=== PATIENT | male | born 1975 | race African-American/Black ===

== ENCOUNTER 2019-04-21 15:47 | Inpatient (IN) | payer OTHER ==
[2019-04-21 20:13] VITALS: BMI 29.0
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
[2019-04-21] MEDS ORDERED: MAG HYDROX/AL HYDROX/SIMETH 30 ML UNIT-DOSE CUP PO PRN (22:36)
[2019-04-21] MEDS ORDERED: hydrOXYzine PAMOATE 25 MG CAPSULE (FP) PO PRN (22:36)
[2019-04-21] MEDS ORDERED: IBUPROFEN 400 MG TABLET (FP) PO PRN (22:36)
[2019-04-21] MEDS ORDERED: MAGNESIUM CITRATE 300 ML BOTTLE PO PRN (22:36)
[2019-04-21] MEDS ORDERED: METHOCARBAMOL 500 MG TABLET PO PRN (22:36)
[2019-04-21] MEDS ORDERED: NICOTINE POLACRILEX 2 MG GUM BUC PRN (22:36)
[2019-04-21] MEDS ORDERED: MAGNESIUM HYDROX 2400MG/30ML ORAL SUSPENSION 30 ML CUP PO PRN (22:36)
[2019-04-21] MEDS ORDERED: BISMUTH SUBSALICYLATE 524 MG/30 ML UD PO PRN (22:36)
[2019-04-21] MEDS ORDERED: ACETAMINOPHEN 325 MG TABLET (FP) PO PRN ×2 (22:36)
[2019-04-21] MEDS ORDERED: chlordiazePOXIDE HCL 25 MG CAPSULE PO PRN (22:36)
[2019-04-21] MEDS ORDERED: MENTHOL/PHENOL 1 EACH UD MM PRN (22:36)
[2019-04-21] MEDS: chlordiazePOXIDE HCL 25 MG CAPSULE PO SCH (23:39)
[2019-04-21] MEDS: MELATONIN 5 MG TABLETS PO PRN (23:40)
[2019-04-22] MEDS: chlordiazePOXIDE HCL 25 MG CAPSULE PO SCH ×4 (06:37→22:43)
--- NOTE | 2019-04-22 11:21 | EKG ---
Test Reason : Blood Pressure : / mmHG Vent. Rate : 071 BPM Atrial Rate : 071 BPM P-R Int : 198 ms QRS Dur : 108 ms QT Int : 382 ms P-R-T Axes : 067 073 053 degrees QTc Int : 415 ms NORMAL SINUS RHYTHM NORMAL ECG NO PREVIOUS ECGS AVAILABLE Confirmed by MALDONADO HARO, JUAN MIGUEL ([id number]) on 04/22/2019 11:20:42 AM Referred By: Confirmed By:JUAN MIGUEL OKEEFE MD
[2019-04-22] MEDS: PRENATAL VITAMINS W/ FOLIC ACID TABLET (FP) PO SCH (11:25)
[2019-04-22] MEDS: NICOTINE 14 MG/24 HOURS TOPICAL PATCH TD SCH (11:27)
[2019-04-22 11:28] LABS: HEMATOCRIT 41.1 % (35.4-49); HEMOGLOBIN 12.9 GM/dL (11.7-16.9); MCH 24.1 pg (25.7-33.7); MCHC 31.5 g/dl (32.0-35.9); MEAN CELL VOLUME 76.4 fl (80-96); PLATELET COUNT 319 K/MM3 (134-434); RBC 5.38 M/mm3 (4.00-5.60); RDW 15.2 % (11.9-15.9)
[2019-04-22 12:26] LABS: ALBUMIN 3.3 g/dl (3.4-5.0); BILIRUBIN,TOTAL 0.6 mg/dL (0.2-1); BLOOD UREA NITROGEN 10.2 mg/dL (7-18); CALCIUM 8.8 mg/dL (8.5-10.1); CREATININE 1.4 mg/dL (0.55-1.3); POTASSIUM 4.1 mmol/L (3.5-5.1); TOT PROT 6.3 g/dl (6.4-8.2)
--- NOTE | 2019-04-22 13:11 | PN ---
[facility] CIWA - CIWA Score Nausea/Vomitin-Mild Nausea/No Vomiting Muscle Tremors: 2 Anxiety: 1-Mildly Anxious Agitation: 1-Slight > Activity Paroxysmal Sweats: 1-Minimal Palms Moist Orientation: 0-Oriented Tacttile Disturbances: 0-None Auditory Disturbances: 0-None Visual Disturbances: 0-None Headache: 1-Very Mild CIWA-Ar Total Score: 7 [facility] Progress Note (SOAP) Subjective: pt admitted for alcohol detox O: Vital Signs - 24 hr 04/21/19 04/21/19 04/22/19 19:58 23:38 00:30 Temperature 99.2 F 97.9 F Pulse Rate 87 74 Respiratory 18 18 18 Rate Blood Pressure 141/86 119/76 04/22/19 04/22/19 03:30 08:03 Temperature 97.2 F L Pulse Rate 80 Respiratory 18 20 Rate Blood Pressure 123/63 Laboratory Tests 04/22/19 04/22/19 04/22/19 07:30 07:30 07:30 WBC 6.0 RBC 5.38 Hgb 12.9 Hct 41.1 MCV 76.4 L MCH 24.1 L MCHC 31.5 L RDW 15.2 Plt Count 319 MPV 8.0 Sodium 144 Potassium 4.1 Chloride 110 H Carbon Dioxide 26 Anion Gap 8 BUN 10.2 Creatinine 1.4 H Est GFR (CKD-EPI)AfAm 69.83 Est GFR (CKD-EPI)NonAf 60.25 Random Glucose 89 Calcium 8.8 Total Bilirubin 0.6 AST 16 ALT 24 Alkaline Phosphatase 86 Total Protein 6.3 L Albumin 3.3 L RPR Titer Nonreactive a/p: continue alcohol detox, pt without complaints.
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
[2019-04-22] MEDS: THIAMINE HCL 100 MG TABLET (FP) PO SCH (22:43)
[2019-04-23] MEDS: MELATONIN 5 MG TABLETS PO PRN ×2 (00:05→23:11)
[2019-04-23] MEDS: chlordiazePOXIDE HCL 25 MG CAPSULE PO SCH ×3 (07:28→18:30)
--- NOTE | 2019-04-23 09:27 | PN ---
S CIWA - CIWA Score Nausea/Vomitin Muscle Tremors: 2 Anxiety: 2 Agitation: 2 Paroxysmal Sweats: 1-Minimal Palms Moist Orientation: 0-Oriented Tacttile Disturbances: 1-Very Mild Itch/Numbness Auditory Disturbances: 1-Very Mild Visual Disturbances: 0-None Headache: 1-Very Mild CIWA-Ar Total Score: 12 [facility] Progress Note (SOAP) Subjective: alert,irritable,anxious,interrupted sleep,pain in the body Objective: 04/23/19 09:26 Vital Signs Temperature 97.9 F 04/23/19 09:08 Pulse Rate 80 04/23/19 09:08 Respiratory Rate 17 04/23/19 09:08 Blood Pressure 101/54 L 04/23/19 09:08 O2 Sat by Pulse Oximetry (%) Laboratory Last Values WBC 6.0 K/mm3 (4.0-10.0) 04/22/19 07:30 RBC 5.38 M/mm3 (4.00-5.60) 04/22/19 07:30 Hgb 12.9 GM/dL (11.7-16.9) 04/22/19 07:30 Hct 41.1 % (35.4-49) 04/22/19 07:30 MCV 76.4 fl (80-96) L 04/22/19 07:30 MCH 24.1 pg (25.7-33.7) L 04/22/19 07:30 MCHC 31.5 g/dl (32.0-35.9) L 04/22/19 07:30 RDW 15.2 % (11.9-15.9) 04/22/19 07:30 Plt Count 319 K/MM3 (134-434) 04/22/19 07:30 MPV 8.0 fl (7.5-11.1) 04/22/19 07:30 Sodium 144 mmol/L (136-145) 04/22/19 07:30 Potassium 4.1 mmol/L (3.5-5.1) 04/22/19 07:30 Chloride 110 mmol/L (98-107) H 04/22/19 07:30 Carbon Dioxide 26 mmol/L (21-32) 04/22/19 07:30 Anion Gap 8 MMOL/L (8-16) 04/22/19 07:30 BUN 10.2 mg/dL (7-18) 04/22/19 07:30 Creatinine 1.4 mg/dL (0.55-1.3) H 04/22/19 07:30 Est GFR (CKD-EPI)AfAm 69.83 04/22/19 07:30 Est GFR (CKD-EPI)NonAf 60.25 04/22/19 07:30 Random Glucose 89 mg/dL (74-106) 04/22/19 07:30 Calcium 8.8 mg/dL (8.5-10.1) 04/22/19 07:30 Total Bilirubin 0.6 mg/dL (0.2-1) 04/22/19 07:30 AST 16 U/L (15-37) 04/22/19 07:30 ALT 24 U/L (13-61) 04/22/19 07:30 Alkaline Phosphatase 86 U/L (45-117) 04/22/19 07:30 Total Protein 6.3 g/dl (6.4-8.2) L 04/22/19 07:30 Albumin 3.3 g/dl (3.4-5.0) L 04/22/19 07:30 RPR Titer Nonreactive (NONREACTIVE) 04/22/19 07:30 Assessment: 04/23/19 09:26 withdrawal symptom Plan: continue detox
[2019-04-23] MEDS: PRENATAL VITAMINS W/ FOLIC ACID TABLET (FP) PO SCH (10:50)
[2019-04-23] MEDS: NICOTINE 14 MG/24 HOURS TOPICAL PATCH TD SCH (10:51)
[2019-04-23] MEDS ORDERED: chlordiazePOXIDE HCL 10 MG CAPSULE PO PRN (23:00)
[2019-04-23] MEDS: chlordiazePOXIDE HCL 10 MG CAPSULE PO SCH (23:11)
[2019-04-23] MEDS: THIAMINE HCL 100 MG TABLET (FP) PO SCH (23:11)
[2019-04-24] MEDS: chlordiazePOXIDE HCL 10 MG CAPSULE PO SCH ×4 (07:28→22:59)
--- NOTE | 2019-04-24 09:34 | PN ---
[facility] CIWA - CIWA Score Nausea/Vomitin-Mild Nausea/No Vomiting Muscle Tremors: 1-None Visible, but [place] Anxiety: 2 Agitation: 2 Paroxysmal Sweats: No Perspiration Orientation: 0-Oriented Tacttile Disturbances: 1-Very Mild Itch/Numbness Auditory Disturbances: 0-None Visual Disturbances: 0-None Headache: 1-Very Mild CIWA-Ar Total Score: 8 [facility] Progress Note (SOAP) Subjective: alert,irritable,anxious,interrupted sleep Objective: 04/24/19 09:33 Vital Signs Temperature 97.3 F L 04/23/19 20:59 Pulse Rate 87 04/23/19 20:59 Respiratory Rate 18 04/24/19 03:16 Blood Pressure 115/78 04/23/19 20:59 O2 Sat by Pulse Oximetry (%) Assessment: 04/24/19 09:34 withdrawal symptom Plan: continue detox,discharge in am
[2019-04-24] MEDS: NICOTINE 14 MG/24 HOURS TOPICAL PATCH TD SCH (10:30)
[2019-04-24] MEDS: PRENATAL VITAMINS W/ FOLIC ACID TABLET (FP) PO SCH (10:30)
--- NOTE | 2019-04-24 16:59 | PN ---
[facility] Progress Note Note: Psychiatry Attending's note (follow-up) : Asked to see this patient to discuss medications. Chart reviewed. Met with the patient at bedside. Mr Siddiqui is already known to MD (was seen on 04/22/19). Medications (buspar, cogentin, seroquel) were held due to sedation. Patient has been irritable and argumentative, as per nursing staff. Eager to resume medications. Attempt made to verify doses and dates of intake. [employer] Supervisor called [facility] at [phone] : no response. Spoke via telephone ([phone]) with pharmacist at [address] : No buspar, seroquel or cogentin on file. Examination reveals a patient currently alert, fully oriented, ambulatory, well- related and conversant. Steady gait. Well groomed, cooperative and hopeful. Wants long-term rehabilitation (preferably [facility]). Not psychotic or manic. Motivated for treatment. Will resume medications as follows : Seroquel 100 mg po hs Buspar 5 mg po bid Side effects/benefits discussed with patient. Mr Siddiqui verbalizes consent for this plan of care. Will follow.
[2019-04-24] MEDS ORDERED: QUEtiapine FUMARATE 100 MG TABLET (FP) PO SCH (22:00)
[2019-04-24] MEDS: THIAMINE HCL 100 MG TABLET (FP) PO SCH (22:58)
[2019-04-24] MEDS: busPIRone HCL 5 MG TABLET PO SCH (22:58)
[2019-04-25 09:00] VITALS: BP 119/53; PULSE 89; TEMP 98.3
--- NOTE | 2019-04-25 10:02 | DS ---
[facility] Detox Discharge Summary Admission Date: 04/21/19 Discharge Date: 04/25/19 - History Present History: Alcohol Dependence, Cocaine Dependence - Physical Exam Results Vital Signs: Vital Signs Temperature 98.3 F 04/25/19 08:59 Pulse Rate 89 04/25/19 08:59 Respiratory Rate 17 04/25/19 08:59 Blood Pressure 119/53 L 04/25/19 08:59 O2 Sat by Pulse Oximetry (%) - Treatment Hospital Course: Detox Protocol Followed, Detoxed Safely, Responded well, Discharged Condition Good - Medication Discharge Medications: Ambulatory Orders Quetiapine Fumarate "Xr" [Seroquel XR] 400 mg PO HS 04/21/19 - Diagnosis (1) Alcohol dependence Current Visit: Yes Status: Chronic Qualifiers: Substance use status: uncomplicated Qualified Code(s): F10.20 - Alcohol dependence, uncomplicated (2) Cocaine dependence Current Visit: Yes Status: Chronic (3) Nicotine dependence Current Visit: Yes Status: Chronic Qualifiers: Nicotine product type: cigarettes Substance use status: uncomplicated Qualified Code(s): F17.210 - Nicotine dependence, cigarettes, uncomplicated - AMA Did Patient Leave Against Medical Advice: No
[2019-04-25] MEDS: PRENATAL VITAMINS W/ FOLIC ACID TABLET (FP) PO SCH (10:32)
[2019-04-25] MEDS: chlordiazePOXIDE HCL 10 MG CAPSULE PO SCH (10:32)
[2019-04-25] MEDS: busPIRone HCL 5 MG TABLET PO SCH (10:32)
[2019-04-25] MEDS: NICOTINE 14 MG/24 HOURS TOPICAL PATCH TD SCH (10:32)
== END 2019-04-25 11:12 | disposition home or self-care (01) | DRG 773 ==
LOC: YASAS 15:47 → Y6N 23:01
PROVIDERS: ADMIT Surgery; ATTEND Surgery
PROC: HZ2ZZZZ Detoxification Services for Substance Abuse Treatment (ICD-10-PCS; principal; 2019-04-21)
DX: F10.230 Alcohol dependence with withdrawal, uncomplicated (principal); F11.23 Opioid dependence with withdrawal; F14.20 Cocaine dependence, uncomplicated; F12.20 Cannabis dependence, uncomplicated; F17.210 Nicotine dependence, cigarettes, uncomplicated; F19.24 Other psychoactive substance dependence with psychoactive substance-induced mood disorder; R40.4 Transient alteration of awareness; Z91.5 Personal history of self-harm
CPT/HCPCS: 36415; 80053; 85027; 86593; 93005; 93010